=== PATIENT | female | born 1995 | race Asian ===

== ENCOUNTER → 2019-08-19 18:06 | Outpatient (CLI) | payer SELFPAY | PROVIDERS: Referring Provider Dermatology Pediatric Dermatology; Visit Provider Dermatology Pediatric Dermatology | DX: L08.9 Local infection of the skin and subcutaneous tissue, unspecified (principal) | CPT/HCPCS: 87015; 87070; 87101; 87116; 87205; 87206 ==

== ENCOUNTER → 2019-08-28 17:54 | Outpatient (CLI) | payer SELFPAY | PROVIDERS: Referring Provider Dermatology; Visit Provider Dermatology | DX: L30.8 Other specified dermatitis (principal) | CPT/HCPCS: 87070; 87101; 87205 ==